=== PATIENT | female | born 1990 | race Caucasian/White ===

== ENCOUNTER 2018-01-20 16:20 | Outpatient (CLI) | payer BC, SELFPAY ==
--- NOTE | 2018-01-20 17:05 | OB.TRI.NOTE ---
History of Present Illness Date of Service: 01/20/18 Was patient seen by the physician?: Yes Reason For Visit: [facility] Date of Service: 01/20/18 Final ISAURA: 03/24/18 Gestational age: 31 Weeks and 0 Days History of Present Illness: 27yo @ 31 wks, was seen in office for routine OB care today- BP elevated. pt denies ARREOLA, visual changes or abdominal pain. BP at [facility] were 150s-160s/90s-100s. - Pertinent Past Medical History Pertinent Past Medical History: h/o NATHAN 3 Physical Exam General: Alert, Oriented x3 Abdomen: Soft, Non Tender, Gravid Estimated gestational size: Appropriate for gestational size NST - FHR Rate Baby A Baseline: 140 Variability:: Moderate Decelerations:: None NST Reactive:: Yes, Appropriate for gestational age FHR Category:: Category I Uterine Activity:: no contractions Impression/Plan 27yo @31 weeks with Preeclampsia 1) Celestone 1 dose given IM at [facility] 2) MAG SULFATE started 3) PRE LABS drawn- PENDING 4) MFM- Reviewed with Dr. Chapin and Dr. Butler- Transport to [facility]
--- NOTE | 2018-01-20 17:12 | OB.TRI.HP_ITS ---
History of Present Illness Date of Service: 01/20/18 Was patient seen by the physician?: Yes Reason For Visit: [facility] Date of Service: 01/20/18 Final ISAURA: 03/24/18 Gestational age: 31 Weeks and 0 Days History of Present Illness: 27yo @ 31 wks, was seen in office for routine OB care today- BP elevated. pt denies ARREOLA, visual changes or abdominal pain. BP at [facility] were 150s-160s/90s- 100s. - Pertinent Past Medical History Pertinent Past Medical History: h/o NATHAN 3 Physical Exam General: Alert, Oriented x3 Abdomen: Soft, Non Tender, Gravid Estimated gestational size: Appropriate for gestational size NST - FHR Rate Baby A Baseline: 140 Variability:: Moderate Decelerations:: None NST Reactive:: Yes, Appropriate for gestational age FHR Category:: Category I Uterine Activity:: no contractions Impression/Plan 27yo @31 weeks with Preeclampsia 1) Celestone [address] [facility] 2) MAG SULFATE started 3) PRE LABS drawn- PENDING 4) MFM- Reviewed with Dr. Chapin and Dr. Butler- Transport to [facility]
[2018-01-20] MEDS: Lactated Ringers 1,000 ML 150 ML IV (17:35)
[2018-01-20 17:59] VITALS: BMI 27.4
[2018-01-20] MEDS: Magnesium Sulfate 20 GM/500 ML BAG IV (18:05)
[2018-01-20 18:15] LABS: Hematocrit 33.7 % (37-47); Hemoglobin 11.4 g/dl (12.0-15.0); International Normalized Ratio 0.9; Mean Corp Hgb Conc 33.8 g/gl (32-36); Mean Corpuscular Hgb 31.2 pg (27.0-32.0); Mean Corpuscular Volume 92.3 fL (81-99); Mean Platelet Vol. 10.5 fl (6.2-12.0); Platelet Count 70 K/mm3 (150-450); Prothrombin Time (Protime)PT. 12.4 SECONDS (11.7-14.9); RBC Distribution Width CV 13.3 % (11.6-14.6); RBC Distribution Width SD 44.2 fl (35.1-43.9); Red Blood Count 3.65 M/mm3 (4.2-5.4)
[2018-01-20 18:16] LABS: Scan Indicated on CBC? Y/N NO
[2018-01-20 18:20] LABS: Creatinine, Urine (random) < 13.00 mg/dL (NO RANGE EST.)
[2018-01-20 18:25] LABS: AST(SGOT) 98 U/L (15-37); Alanine Aminotransfer ALT/SGPT 219 U/L (13-56); Creatinine, Serum 0.74 mg/dL (0.55-1.02); EST Glomerular Filtration Rate 99 mL/min (>60); Est Glom Filt Rate - Afr Amer 120 mL/min (>60); Estimated Creatinine Clearance 94.46 ml/min; Uric Acid 4.3 mg/dL (2.6-6.0)
[2018-01-20] MEDS: Betamethasone/Betamethasone 30 MG/5 ML Vial 12 MG IM (19:51)
== END 2018-01-20 18:13 | disposition home or self-care (01) ==
LOC: WPOUT 16:30 → WP 16:31 → WPOUT 16:31 → LABSPEC 16:31
PROVIDERS: Family Provider Family Medicine; PCP Family Medicine; Visit Provider Obstetrics & Gynecology
DX: O14.93 Unspecified pre-eclampsia, third trimester (principal); Z3A.31 31 weeks gestation of pregnancy
CPT/HCPCS: 96365; 36415; 82565; 82570; 84156; 84450; 84460; 84550; 85027; 85610; 85730; 96372; 99218; J7120; G0378; J0702